=== PATIENT | female | born 1950 | race Caucasian/White ===

== ENCOUNTER 2017-01-12 06:00 | Emergency (ER) | payer MEDICARE, BC ==
[2017-01-12] MEDS ORDERED: methylPREDNISolone Sodium Succinate 125 MG/2 ML SDV IM ONE (06:31)
--- NOTE | 2017-01-12 08:23 | EDM.PDOC ---
ED HPI GENERAL MEDICAL PROBLEM - General Chief Complaint: Allergic Reaction Stated Complaint: Possible Allergic Reaction Time Seen by Provider: 01/12/17 06:15 Source of Information: Reports: Patient History Limitations: Reports: No Limitations - History of Present Illness INITIAL COMMENTS - FREE TEXT/NARRATIVE: Pt. states that she underwent removal of a skin lesion on Thursday under local anesthetic. She states that she developed swelling and pruritis to the area after the procedure. Pt. was seen by Mario Britt PA-C and was told to take benadryl for the reaction. Pt. has been taking the benadryl but states that her face was much more edematous after lying face down in bed last night. She continues to not experiencing any shortness of breath, throat tightness, hoarseness, chest pain , or lightheadedness. 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: Reports: Other (see below) Other Treatments BROADCAST FIELD SUPERVISOR: Benadryl Head/Face Pain Score (Numeric/FACES): 5 - Related Data Allergies Allergy/AdvReac Type Severity Reaction Status Date / Time No Known Allergies Allergy Verified 01/12/17 06:08 Home Meds: Home Meds Aspirin [Halfprin] 81 mg PO Q72H 02/07/14 [History] Calcium Carbonate/Vitamin D3 [Calcium 600 + Vit D 400] 1 tab PO DAILY 02/07/14 [ History] Cholecalciferol (Vitamin D3) [Vitamin D3] 1 tab PO DAILY 02/07/14 [History] Cyclobenzaprine [Flexeril] 1 - 2 tab PO TID PRN 02/07/14 [History] Gluc HCl/Csa/[place] Hy/Hyalur Ac [Glucosamine Chondroitin] 1 cap PO DAILY [History] Lutein 10 mg PO DAILY 02/07/14 [History] Multivitamin [Multivitamins] 1 tab PO DAILY 02/07/14 [History] Social & Family History - Tobacco Use Smoking Status *Q: Former Smoker Used Tobacco, but Quit: Yes Month Tobacco Last Used: 20 years ago - Recreational Drug Use Recreational Drug Use: No ED ROS ALLERGIC REACTION - Review of Systems Review Of Systems: See Below Constitutional: Reports: No Symptoms HEENT: Reports: Other (facial swelling) Respiratory: Reports: No Symptoms Cardiovascular: Reports: No Symptoms Endocrine: Reports: No Symptoms GI/Abdominal: Reports: No Symptoms : Reports: No Symptoms Musculoskeletal: Reports: No Symptoms Skin: Reports: Urticaria Neurological: Reports: No Symptoms Psychiatric: Reports: No Symptoms Hematologic/Lymphatic: Reports: No Symptoms Immunologic: Reports: No Symptoms ED EXAM GENERAL NO PERIP PULSE - Physical Exam Exam: See Below Exam Limited By: No Limitations General Appearance: Alert Throat/Mouth: Normal Inspection, Normal Lips, Normal Teeth, Normal Oropharynx, No Airway Compromise Head: Atraumatic, Normocephalic, Facial Swelling Neck: Normal Inspection, Supple, Non-Tender Respiratory/Chest: No Respiratory Distress, Lungs Clear, Normal Breath Sounds, No Accessory Muscle Use, Chest Non-Tender Cardiovascular: Normal Peripheral Pulses, Regular Rate, Rhythm, No Edema GI/Abdominal: Normal Bowel Sounds, Soft, Non-Tender, No Distention, No Mass Back Exam: Vertebral Tenderness Extremities: Normal Inspection, Non-Tender, Normal Capillary Refill Neurological: Alert, Oriented, CN II-XII Intact, Normal Cognition, Normal Reflexes, No Motor/Sensory Deficits Skin Exam: Warm, Dry, Intact Lymphatic: No Adenopathy Course - Vital Signs Last Recorded V/S: Last Vital Signs Temp 37.4 C 01/12/17 06:20 Pulse 73 01/12/17 06:20 Resp 16 01/12/17 06:20 BP 157/66 H 01/12/17 06:20 Pulse Ox 99 01/12/17 06:20 - Orders/Labs/Meds Meds: Medications Discontinued Medications Generic Name Dose Route Start Last Admin Trade Name Freq PRN Reason Stop Dose Admin Methylprednisolone Sodium Succinate 125 mg 01/12/17 06:31 01/12/17 06:36 Solu-Medrol IM 01/12/17 06:32 125 mg ONETIME ONE Administration Departure - Departure Time of Disposition: 07:00 Disposition: Home, Self-Care 01 Condition: Good Clinical Impression: Allergic reaction - Discharge Information Instructions: Drug Allergy, [id number] Referrals: Norah Wiley PA-C [Primary Care Provider] - Forms: ED Department Discharge Additional Instructions: Prednisone 40mg once daily for 7 days Continue with 50mg every 4-6h hours for discomfort Tylenol and Ibuprofen for discomfort Sleep with head elevated tonight. Spend as much time sitting up as possible. - Assessment/Plan Assessment:: allergic reaction Plan: Prednisone 40mg once daily for 7 days Continue with 50mg every 4-6h hours for discomfort Tylenol and Ibuprofen for discomfort Sleep with head elevated tonight. Spend as much time sitting up as possible.
== END 2017-01-12 06:54 | disposition home or self-care (01) ==
LOC: VM.ED 06:00
DX: T78.40XA Allergy, unspecified, initial encounter (principal); R22.0 Localized swelling, mass and lump, head; Z87.891 Personal history of nicotine dependence; Z79.82 Long term (current) use of aspirin; Z79.899 Other long term (current) drug therapy
CPT/HCPCS: 96372; 99283; J2930

== ENCOUNTER 2018-04-17 09:03 | Emergency (ER) | payer BC, MEDICARE ==
--- NOTE | 2018-04-17 10:15 | CR ---
[id number] RAD/RAD Hand Left 3V Exam: RAD Hand Left 3V Indication:FELL LAST NIGHT, DORSAL HAND PAIN AND EDEMA. Comparison: No prior imaging for comparison. Discussion: Soft tissue swelling along the dorsal aspect of the hand overlying the metacarpals. No underlying acute fracture or dislocation. Articulations remain in normal alignment. Advanced osteophytosis at the 1st digit CMC joint. Impression: Dorsal soft tissue swelling without underlying fracture or dislocation. Augustine Bashir MD 04/17/18 1014 Thank you for allowing us to participate in the care of your patient.
--- NOTE | 2018-04-17 21:21 | EDM.PDOC ---
ED HPI GENERAL MEDICAL PROBLEM - General Chief Complaint: Upper Extremity Injury/Pain Stated Complaint: LEFT HAND INJURY Time Seen by Provider: 04/17/18 09:03 Source of Information: Reports: Patient History Limitations: Reports: No Limitations - History of Present Illness INITIAL COMMENTS - FREE TEXT/NARRATIVE: Pt. presents to ER with complaints of L hand pain. Pt. states that she slipped on the ice yesterday, injuring her hand. She denies any injury elsewhere. Denies any numbness/tingling in extremities. She states that she did strike her head but has not headache, nausea, or vomiting. Denies any neck pain. Onset: Today Onset Date: 04/17/18 Onset Time: 09:03 Location: Reports: Upper Extremity, Left Quality: Reports: Throbbing Severity: Moderate Left Anterior Hand Pain Score (Numeric/FACES): 5 - Related Data Allergies Allergy/AdvReac Type Severity Reaction Status Date / Time No Known Allergies Allergy Verified 04/17/18 09:20 Home Meds: Home Meds Aspirin [Halfprin] 81 mg PO Q72H 02/07/14 [History] Calcium Carbonate/Vitamin D3 [Calcium 600 + Vit D 400] 1 tab PO DAILY 02/07/14 [ History] Cholecalciferol (Vitamin D3) [Vitamin D3] 1 tab PO DAILY 02/07/14 [History] Cyclobenzaprine [Flexeril] 1 - 2 tab PO TID PRN 02/07/14 [History] Gluc HCl/Csa/[place] Hy/Hyalur Ac [Glucosamine Chondroitin] 1 cap PO DAILY [History] Lutein 10 mg PO DAILY 02/07/14 [History] Multivitamin [Multivitamins] 1 tab PO DAILY 02/07/14 [History] Past Medical History Musculoskeletal History: Reports: Arthritis Social & Family History - Tobacco Use Smoking Status *Q: Unknown Ever Smoked Review of Systems - Review of Systems Review Of Systems: ROS reveals no pertinent complaints other than HPI. ED EXAM, GENERAL - Physical Exam Exam: See Below Exam Limited By: No Limitations General Appearance: Alert, WD/WN, No Apparent Distress Nose: Normal Inspection, Normal Mucosa, No Blood Head: Atraumatic, Normocephalic Neck: Normal Inspection, Supple, Non-Tender, Full Range of Motion Peripheral Pulses: 3+: Radial (L), Radial (R) Skin Exam: Warm, Dry, Intact, Normal Color, No Rash Course - Vital Signs Last Recorded V/S: Last Vital Signs Temp 36.6 C 04/17/18 09:08 Pulse 65 04/17/18 09:08 Resp 16 04/17/18 09:08 BP 146/68 H 04/17/18 09:08 Pulse Ox 99 04/17/18 09:08 - Radiology Interpretation Free Text/Narrative:: L hand x-ray is negative. Departure - Departure Time of Disposition: 10:25 Disposition: Home, Self-Care 01 Clinical Impression: Hand contusion - Discharge Information Instructions: Hand Contusion, [id number] Referrals: Norah Wiley PA-C [Primary Care Provider] - Forms: ED Department Discharge Additional Instructions: Tylenol and ibuprofen as needed for pain. Kvng wrap as needed to help with discomfort/swelling. Ice hand for 10-15 min every 1-2 hours. If continuing to have discomfort, follow-up in clinic for repeat x-rays. - Assessment/Plan Plan: Tylenol and ibuprofen as needed for pain. Kvng wrap as needed to help with discomfort/swelling. Ice hand for 10-15 min every 1-2 hours. If continuing to have discomfort, follow-up in clinic for repeat x-rays.
== END 2018-04-17 10:25 | disposition home or self-care (01) ==
LOC: VM.ED 09:03
DX: S60.222A Contusion of left hand, initial encounter (principal); W00.0XXA Fall on same level due to ice and snow, initial encounter
CPT/HCPCS: 73130-LT; 99283

== ENCOUNTER 2019-05-04 06:34 | Day surgery (SDC) | payer BC, MEDICARE ==
[2019-05-04] MEDS ORDERED: Lactated Ringers 1,000 ML IV SCH (07:00)
[2019-05-04] MEDS ORDERED: Sodium Chloride 0.9% 10 ML Syringe FLUSH PRN (07:00)
[2019-05-04] MEDS ORDERED: fentaNYL 100 MCG/2 ML SDV ONE (07:39)
[2019-05-04] MEDS ORDERED: Propofol 200 MG/20 ML SDV ONE ×2 (07:40→09:32)
--- NOTE | 2019-05-04 13:38 | OR ---
PREOPERATIVE DIAGNOSIS: Screening colonoscopy. POSTOPERATIVE DIAGNOSES: 1. Ulcerative inflammation of the ascending and proximal sigmoid colon. 2. No polyps identified. ANESTHESIA: MAC anesthesia. COMPLICATIONS: None. BLOOD LOSS: Minimal. FINDINGS: 1. There was acute ulcerative inflammation in the ascending and sigmoid colon. 2. The terminal ileum was grossly normal and biopsies were taken. 3. The left colon was grossly normal. 4. The distal sigmoid and rectum were grossly normal. 5. There was no evidence of polyps. INDICATION FOR PROCEDURE: Megan Hubbard is a 69-year-old female who is here for colonoscopy screening. Her last scope she says was 5 years ago and she thinks there were no polyps. She denies bloody or dark black stools. She denies abdominal pain. Her brother had colon cancer at age 57. DETAILS OF PROCEDURE: After informed consent was obtained, the patient was placed in the left lateral decubitus position. MAC anesthesia was induced by Anesthesia colleagues without incident, and her digital rectal exam was unremarkable. The colonoscope with Endocuff device was introduced into the anal canal and advanced to the cecum. On the way in, we saw there was some acute inflammation in the sigmoid colon and so the terminal ileum was intubated and biopsied. It was grossly normal. The left colon was grossly normal. As the colonoscope was withdrawn, we saw there was acute ulcerative inflammation that was somewhat patchy in the ascending and proximal sigmoid colon. Multiple biopsies were taken. Distal to this, the distal sigmoid and rectum were normal in appearance. A retroflexed view was performed. The rectum was desufflated, and the colonoscope was withdrawn. She was awoken from MAC anesthesia without incident. Her bowel prep was [place] class III. RKM: 05/04/2019 10:01:03 MODL: 05/04/2019 13:22:51 /[id number]
--- NOTE | 2019-05-04 15:05 | OR ---
ADDENDUM: START TIME: 09:26. CECUM TIME: 09:37. STOP TIME: 09:51. RKM: 05/04/2019 10:02:51 MODL: 05/04/2019 13:26:03 /[id number]
== END 2019-05-04 10:55 | disposition home or self-care (01) ==
LOC: VM.SDS 06:34
PROVIDERS: ATTEND Student in an Organized Health Care Education/Training Program
DX: Z12.11 Encounter for screening for malignant neoplasm of colon (principal); K51.80 Other ulcerative colitis without complications; E78.5 Hyperlipidemia, unspecified; M19.90 Unspecified osteoarthritis, unspecified site; F17.210 Nicotine dependence, cigarettes, uncomplicated; E66.9 Obesity, unspecified; Z68.30 Body mass index [BMI] 30.0-30.9, adult; Z79.82 Long term (current) use of aspirin; Z80.0 Family history of malignant neoplasm of digestive organs
CPT/HCPCS: J2704; J3010; J7120

== ENCOUNTER 2020-05-11 07:03 | Day surgery (SDC) | payer MEDICARE, BC ==
[~2020-05-11 07:03] MED LIST: Lactated Ringers 1,000 ML IV SCH
[2020-05-11] MEDS ORDERED: Propofol 200 MG/20 ML SDV ONE ×2 (07:39→09:28)
[2020-05-11] MEDS ORDERED: fentaNYL 100 MCG/2 ML SDV ONE (07:39)
--- NOTE | 2020-05-11 13:21 | OR ---
PREOPERATIVE DIAGNOSIS: History of ischemic colitis 1 year ago on colonoscopy. POSTOPERATIVE DIAGNOSES: 1. History of ischemic colitis 1 year ago on colonoscopy. 2. Colon polyps. PROCEDURE PERFORMED: Total flexible colonoscopy with biopsies. ANESTHESIA: MAC anesthesia. COMPLICATIONS: None apparent. BLOOD LOSS: Minimal. FINDINGS: 1. Sigmoid polyp, 2 mm, cold forceps. 2. Cecal polyp, 4 mm, cold snare. 3. Splenic flexure polyps x2, 5 mm/3 mm, cold snare. 4. Sigmoid polyps x3, 2 mm/4 mm/2 mm, cold forceps and cold snare. 5. No evidence of inflammation or ischemia throughout the colon. Start time 09:18, cecum time 09:30, stop time 09:52. INDICATIONS FOR PROCEDURE: Megan Hubbard is a 70-year-old female who had a colonoscopy 1 year ago at which point she had some ischemic colitis. She really was asymptomatic from that. That scope was routine colonoscopy. She has not been having any issues, although she does have intermittent rectal bleeding. She is here for a repeat colonoscopy at 1 year to make sure that there are no further issues with her ischemic colitis. DETAILS OF PROCEDURE: Informed consent was obtained. The patient was brought to the operating room and placed in the left lower decubitus position on the procedure table. MAC anesthesia was induced by Anesthesia colleagues without incident. The colonoscope was introduced in the rectum, advanced all the way to the cecum. She did have a fairly redundant sigmoid colon which did require some abdominal pressure to complete the colonoscopy. The appendiceal orifice was photographed. The terminal ileum was intubated and photographed. The colonoscope was then slowly withdrawn. No pathology was identified except for what is mentioned in the above findings section. In particular, there was no evidence of any sort of ischemia or inflammation. A retroflexed view was obtained. The colonoscope was removed. The patient tolerated the procedure well, was awoken from MAC anesthesia by Anesthesia colleagues without incident. BOWEL PREP: [place] class 3. PATHOLOGY: A) Colon, sigmoid polyp Hyperplastic polyp. B) Colon, cecal polyp Sessile serrated adenoma C) Colon, splenic flexure polyp Fragments of sessile serrated adenoma(s). 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 RECOMMENDATION: Recommend repeat screening colonoscopy in 3 years. RKM: 05/11/2020 09:58:52 MODL: 05/11/2020 12:02:24 /[id number] MTDD
--- NOTE | 2020-05-17 08:42 | LETTER ---
05/16/2020 Megan Freeman [id number] [place] [id number] RE: MEGAN FREEMAN : 1950 Dear Ms. Freeman: I am writing to inform you of the pathology results from your recent colonoscopy. We did not find any evidence of inflammation or ischemia as we had seen previously. However, we did remove several polyps, some of which are considered precancerous. None of these polyps contained any cancer cells. Due to the number of precancerous polyps seen, you will need a repeat screening colonoscopy in 3 years. Warmest regards,
== END 2020-05-11 10:55 | disposition home or self-care (01) ==
LOC: VM.SDS 07:03
PROVIDERS: ATTEND Student in an Organized Health Care Education/Training Program
DX: Z12.11 Encounter for screening for malignant neoplasm of colon (principal); D12.0 Benign neoplasm of cecum; D12.3 Benign neoplasm of transverse colon; E78.00 Pure hypercholesterolemia, unspecified; I10 Essential (primary) hypertension; E66.9 Obesity, unspecified; F17.210 Nicotine dependence, cigarettes, uncomplicated; Z87.19 Personal history of other diseases of the digestive system; Z79.899 Other long term (current) drug therapy; Z01.812 Encounter for preprocedural laboratory examination; Z20.822 Contact with and (suspected) exposure to COVID-19; Z80.0 Family history of malignant neoplasm of digestive organs; Z68.31 Body mass index [BMI] 31.0-31.9, adult; Z98.890 Other specified postprocedural states
CPT/HCPCS: 00811; 88305; J2704; J3010; J7120; U0002

== ENCOUNTER 2021-07-28 12:19 | Emergency (ER) | payer MEDICARE, BC ==
[2021-07-28] MEDS: Aspirin 81 MG Tab.Chew PO ONE (12:30)
[2021-07-28] MEDS: Nitroglycerin 0.4 MG Tab.SL SL ONE ×2 (12:49→13:29)
[2021-07-28 13:16] LABS: PTT,PARTIAL THROMBOPLSTIN TIME 26.2 SEC (20.5-30.9)
[2021-07-28 13:27] LABS: CHLORIDE,CL 104 mmol/L (98-107); SODIUM,NA 140 mmol/L (136-145)
[2021-07-28 13:28] LABS: ANION GAP 11.6 mmol/L (5-15)
[2021-07-28] MEDS: Nitroglycerin 2% Oint 1 GM UD Packet TOP ONE (13:51)
[2021-07-28] MEDS: Heparin Sodium 5,000 Units/ML Vial IVPUSH ONE (14:08)
[2021-07-28] MEDS: Heparin Sodium/0.45% NaCl 25,000 UNITS/500 ML BAG IV STA (14:08)
== END 2021-07-28 17:40 | disposition short-term general hospital (02) ==
LOC: VM.ED 12:19
DX: I24.9 Acute ischemic heart disease, unspecified (principal); E66.9 Obesity, unspecified; Z68.32 Body mass index [BMI] 32.0-32.9, adult
CPT/HCPCS: 36415; 71045; 74022; 80053; 83735; 83880; 84100; 84443; 84484; 85025; 85379; 85610; 85730; 86140; 93005; 93010; 96365; 96366; 99284; 99285-25; A9270-GY; J1644

== ENCOUNTER 2024-01-08 08:28 | Day surgery (SDC) | payer MEDICARE ==
[2024-01-08] MEDS: Lactated Ringers 1,000 ML IV SCH (08:45)
[2024-01-08] MEDS ORDERED: Propofol 200 MG/20 ML SDV ONE (11:40)
[2024-01-08] MEDS ORDERED: fentaNYL 100 MCG/2 ML SDV ONE (11:40)
== END 2024-01-08 13:27 | disposition home or self-care (01) ==
LOC: VM.SDS 08:28
PROVIDERS: ATTEND Student in an Organized Health Care Education/Training Program
DX: Z12.11 Encounter for screening for malignant neoplasm of colon (principal); D12.0 Benign neoplasm of cecum; D12.3 Benign neoplasm of transverse colon; I10 Essential (primary) hypertension; E78.00 Pure hypercholesterolemia, unspecified; E66.811 Obesity, class 1; F17.210 Nicotine dependence, cigarettes, uncomplicated; Z79.899 Other long term (current) drug therapy; Z86.16 Personal history of COVID-19; Z86.0100 Personal history of colon polyps, unspecified; Z68.31 Body mass index [BMI] 31.0-31.9, adult
CPT/HCPCS: 00811; 88305; 99100; J2704; J3010; J7120

== ENCOUNTER 2024-08-29 06:58 | Day surgery (SDC) | payer MEDICARE ==
[~2024-08-29 06:58] MED LIST changes: +Brimonidine 0.2% Ophth Soln 5 ML Bottle ONE; +Dexamethasone/Neomycin/Polymyxin B Ophth Oint 3.5 GM Tube ONE; -Lactated Ringers 1,000 ML IV SCH; +Lidocaine 1% 2 ML ONE; +Phenyleprhine/Ketorolac 4 ML Vial ONE; +Povidone-Iodine 5% Sterile Ophth Soln 30 ML Bottle ONE; +Proparacaine 0.5% Ophth Soln 15 ML Bottle ONE
[2024-08-29] MEDS: Phenylephrine 2.5% Ophth Soln 2 ML Bot EYERT SCH (07:09)
[2024-08-29] MEDS: Cyclopentolate 1% Opth Soln 2 ML Bottle EYERT SCH (07:10)
[2024-08-29] MEDS: Tropicamide 1% Ophth Soln 15 ML Bottle EYERT SCH (07:10)
[2024-08-29] MEDS: Moxifloxacin 0.5% Ophth Soln 3 ML Bottle EYERT ONE ×2 (07:36→09:00)
[2024-08-29] MEDS ORDERED: Midazolam 1 MG/ML 2 ML SDV ONE (08:33)
[2024-08-29] MEDS ORDERED: fentaNYL 100 MCG/2 ML SDV ONE (08:33)
[2024-08-29] MEDS ORDERED: ceFAZolin 500 MG Vial ONE (08:51)
[2024-08-29] MEDS: Povidone-Iodine 5% Sterile Ophth Soln 30 ML Bottle EYERT ONE (08:59)
[2024-08-29] MEDS: Phenyleprhine/Ketorolac 4 ML Vial IO ONE (09:00)
[2024-08-29] MEDS: Balanced Salt Solution Ophth Irrig 500 ML Bottle IOCULAR ONE (09:00)
[2024-08-29] MEDS: Dexamethasone/Neomycin/Polymyxin B Ophth Oint 3.5 GM Tube EYERT ONE (09:01)
[2024-08-29] MEDS: Brimonidine 0.2% Ophth Soln 5 ML Bottle EYERT ONE (09:01)
[2024-08-29] MEDS: Lidocaine 1% PF 2 ML SDV INFILT ONE (09:01)
[2024-08-29] MEDS: Chondroitin Sulfate/Hyaluronate Sodium Ophth Inj 0.5 ML Syringe IOCULAR ONE (09:01)
[2024-08-29] MEDS: acetaZOLAMIDE 500 MG Cap.ER PO ONE (09:29)
== END 2024-08-29 09:55 | disposition home or self-care (01) ==
LOC: VM.SDS 06:58
PROVIDERS: ATTEND Ophthalmology
DX: H25.813 Combined forms of age-related cataract, bilateral (principal); H40.013 Open angle with borderline findings, low risk, bilateral; I10 Essential (primary) hypertension; E78.5 Hyperlipidemia, unspecified; Z79.899 Other long term (current) drug therapy; F17.210 Nicotine dependence, cigarettes, uncomplicated
CPT/HCPCS: 00142; 99100; A9270-GY; J0690; J1097; J2003; J2250; J3010; J3490; V2632